=== PATIENT | male | born 1985 | race Caucasian/White ===

== ENCOUNTER 2017-06-26 06:41 | Emergency (ER) | payer BC ==
[2017-06-26] MEDS ORDERED: Ketorolac 60 MG/2 ML SDV IM ONE (07:30)
--- NOTE | 2017-06-26 07:30 | EDM.PDOC ---
ED HPI GENERAL MEDICAL PROBLEM - General Chief Complaint: Back Pain or Injury Stated Complaint: BACK PAIN Time Seen by Provider: 06/26/17 07:30 Source of Information: Reports: Patient - History of Present Illness INITIAL COMMENTS - FREE TEXT/NARRATIVE: HISTORY AND PHYSICAL: History of present illness: [Patient with history of low back pain presents with low back pain 6 out of 10 radiating down the right leg to the level of mid thigh posteriorly, he is had these symptoms in the past. New symptoms began yesterday after he stepped out of his pickup he slipped on ice causing low back spasm No fever nausea vomiting chills sweats no head injury or loss of consciousness no footdrop saddle anesthesia bowel or urine symptoms ] Review of systems: As per history of present illness and below otherwise all systems reviewed and negative. Past medical history: As per history of present illness and as reviewed below otherwise noncontributory. Surgical history: As per history of present illness and as reviewed below otherwise noncontributory. Social history: No reported history of drug or alcohol abuse. Family history: As per history of present illness and as reviewed below otherwise noncontributory. Physical exam: HEENT: Atraumatic, normocephalic, pupils reactive, negative for conjunctival pallor or scleral icterus, mucous membranes moist, throat clear, neck supple, nontender, trachea midline. Lungs: Clear to auscultation, breath sounds equal bilaterally, chest nontender. Heart: S1S2, regular, negative for clicks, rubs, or JVD. Abdomen: Soft, nondistended, nontender. Negative for masses or hepatosplenomegaly. Negative for costovertebral tenderness. Pelvis: Stable nontender. Genitourinary: Deferred. Rectal: Deferred. Extremities: Atraumatic, negative for cords or calf pain. Neurovascular unremarkable. Neuro: Awake, alert, oriented. Cranial nerves II through XII unremarkable. Cerebellum unremarkable. Motor and sensory unremarkable throughout. Exam nonfocal. Diagnostics: [Lumbar spine 3 views ] Therapeutics: [Toradol 60 IM Rest ice ibuprofen Alpaugh for severe pain Flexeril 10 mg by mouth 3 times a day when necessary #30 no refill] Impression: [Low-back pain/paraspinous muscle spasm on the right Sciatic distribution pain on the right Degenerative disc disease ] Definitive disposition and diagnosis as appropriate pending reevaluation and review of above. Back Pain Score (Numeric/FACES): 8 - Related Data Allergies Allergy/AdvReac Type Severity Reaction Status Date / Time No Known Allergies Allergy Verified 06/26/17 06:50 Home Meds: Home Meds . [No Known Home Meds] 06/26/17 [History] Past Medical History - Past Health History Medical/Surgical History: Denies Medical/Surgical History Social & Family History - Family History Family Medical History: Noncontributory - Tobacco Use Smoking Status *Q: Never Smoker - Caffeine Use Caffeine Use: Reports: Coffee, Energy Drinks - Alcohol Use Days Per Week of Alcohol Use: 2 Number of Drinks Per Day: 5 Total Drinks Per Week: 10 - Recreational Drug Use Recreational Drug Use: No ED ROS GENERAL - Review of Systems Review Of Systems: ROS reveals no pertinent complaints other than HPI. ED EXAM, GENERAL - Physical Exam Exam: See Below Course - Vital Signs Last Recorded V/S: Last Vital Signs Temp 98.4 F 06/26/17 06:50 Pulse 98 06/26/17 06:50 Resp 16 06/26/17 06:50 BP 129/84 06/26/17 06:50 Pulse Ox 97 06/26/17 06:50 - Orders/Labs/Meds Orders: Active Orders 24 hr Category Date Time Status Lumbar Spine 2 or 3V [CR] Stat Exams 06/26/17 07:30 Taken Meds: Medications Discontinued Medications Generic Name Dose Route Start Last Admin Trade Name Azar PRN Reason Stop Dose Admin Ketorolac Tromethamine 60 mg 06/26/17 07:30 06/26/17 07:38 Toradol IM 06/26/17 07:31 60 mg ONETIME ONE Administration Departure - Departure Time of Disposition: 08:43 Disposition: Home, Self-Care 01 Condition: Good Clinical Impression: Spasm of lumbar paraspinous muscle - Discharge Information Referrals: PCP,None [Primary Care Provider] - Forms: ED Department Discharge Additional Instructions: Rest Ice 20 minute intervals 3 times daily as needed Ibuprofen 400 mg 3 times daily 7-10 days Flexeril 10 mg by mouth 3 times a day when necessary #30 no refill Alpaugh 5 mg per 325 one tablet by mouth every 6 hours as needed for severe pain Follow-up with primary care in 2 weeks The following information is given to patients seen in the emergency department who are being discharged to home. This information is to outline your options for follow-up care. We provide all patients seen in our emergency department with a follow-up referral. The need for follow-up, as well as the timing and circumstances, are variable depending upon the specifics of your emergency department visit. If you don't have a primary care physician on staff, we will provide you with a referral. We always advise you to contact your personal physician following an emergency department visit to inform them of the circumstance of the visit and for follow-up with them and/or the need for any referrals to a consulting specialist. The emergency department will also refer you to a specialist when appropriate. This referral assures that you have the opportunity for follow-up care with a specialist. All of these measure are taken in an effort to provide you with optimal care, which includes your follow-up. Under all circumstances we always encourage you to contact your private physician who remains a resource for coordinating your care. When calling for follow-up care, please make the office aware that this follow-up is from your recent emergency room visit. If for any reason you are refused follow-up, please contact the [facility] emergency department at and asked to speak to the emergency department charge nurse. - My Orders Last 24 Hours: My Active Orders 06/26/17 07:30 Lumbar Spine 2 or 3V [CR] Stat - Assessment/Plan Last 24 Hours: My Active Orders 06/26/17 07:30 Lumbar Spine 2 or 3V [CR] Stat
--- NOTE | 2017-06-28 15:04 | CR ---
EXAM DATE: 06/26/17 PATIENT'S AGE: 32 Patient: JEFFERSON MAGANA Facility: [place], [place] Site . Site : 1985 Study: XRay Spine Lumbar [id number]/[id number] 8:14:35 AM Ordering Physician: Doctor Johnson Final Report: INDICATION: Pain. Fell on ice. Technique: Three views lumbar spine. Findings: Minimal posterior subluxation of L4 on L5. Moderate narrowing of L4 interspace with degenerative disc disease. No fractures in the lumbar spine. Mild degenerative and hypertrophic changes elsewhere throughout the lumbar spine. Mid and lower lumbar facet throughout sclerosis and degenerative change. Minimal anterior wedging of the L1 vertebral body is likely chronic. Remainder negative. Dictated by Chay Lowery MD @ Jun 26 2017 8:21AM (Electronic Signature) Report Signed by Proxy. TA
== END 2017-06-26 09:01 | disposition home or self-care (01) ==
LOC: MW.ED 06:41
DX: M62.830 Muscle spasm of back (principal); M51.16 Intervertebral disc disorders with radiculopathy, lumbar region
CPT/HCPCS: 72100; 96372; 99283; J1885